=== PATIENT | female | born 1950 | race Caucasian/White ===

== ENCOUNTER → 2017-09-29 | Outpatient (CLI) | payer MEDICARE, OTHER | END | disposition home or self-care (01) | LOC: CDC 14:03 | DX: Z01.810 Encounter for preprocedural cardiovascular examination (principal); R59.9 Enlarged lymph nodes, unspecified | CPT/HCPCS: 93000 ==

== ENCOUNTER 2017-10-07 06:29 | Day surgery (SDC) | payer OTHER ==
[~2017-10-07] VITALS: Ht 165.1 cm; Wt 80.7 kg
[~2017-10-07 06:29] MED LIST: DAILY MULTIPLE1 EACH PO; OMEGA 3-6-9 CO400 MG PO; VITAMIN C1000 MG PO; VITAMIN D-32000 UNI2 PO
[2017-10-07 07:43] VITALS: BP 130/60
[2017-10-07] MEDS ORDERED: HYDROCODON-ACE1 EAC7 PO (09:57)
[2017-10-07 10:15] VITALS: BP 124/73
[2017-10-07 10:40] VITALS: BP 131/75
== END 2017-10-07 10:50 | disposition home or self-care (01) ==
LOC: SDC 06:29
PROC: 0KB30ZZ Excision of Left Neck Muscle, Open Approach (ICD-10-PCS; principal; 2017-10-07)
DX: D17.9 Benign lipomatous neoplasm, unspecified (principal)
CPT/HCPCS: 88304; J0330; J0690; J1100; J2250; J2405; J3010; S0020